=== PATIENT | male | born 1995 | race Caucasian/White ===

== ENCOUNTER 2018-08-23 10:36 | Emergency (ER) | payer OTHER ==
[~2018-08-23] VITALS: Ht 172.7 cm; Wt 63.1 kg
[~2018-08-23 10:36] MED LIST: ACET500C5 PO
[2018-08-23 10:41] VITALS: BP 118/58; PULSE 73; RESP 17; Ht 172.7 cm; Wt 63.1 kg
[2018-08-23] MEDS ORDERED: BACI28.34 TOP (11:10)
[2018-08-23] MEDS ORDERED: AMOX1TAB10 PO (11:10)
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
== END 2018-08-23 11:36 | disposition home or self-care (01) ==
LOC: FTE 10:36
DX: S61.451A Open bite of right hand, initial encounter (principal); W55.01XA Bitten by cat, initial encounter; Y92.9 Unspecified place or not applicable
CPT/HCPCS: 99283